=== PATIENT | female | born 1985 | race American Indian/Alaskan Native ===

== ENCOUNTER 2017-04-14 05:56 | Inpatient (IN) | payer OTHER ==
[2017-04-14 06:45] VITALS: BMI 27.6
[2017-04-14] MEDS ORDERED: Sodium Citrate/Citric Acid 15 ml Sol PO ONE (06:45)
--- NOTE | 2017-04-14 06:45 | OBHP ---
Datetime: 04/14/2017 06:40 IP Adm Impression: Term, intrauterine IP Adm Impression Other: early labor IP Admit Plan: Admit to unit Admit Comment, IP Provider: chief complaint-back anthony HPI 32 y/o at 38.3wga with c/o back pain course complicated by transfer of care; abnormal 1 hour gtt.could no do 3 hour gtt.was to ld she is gdm.has not been doing blood sugars at home PMH denies PSH csection OBGYN HX ; Csectionx1 Exam see exam section A/P 32 y/o at 38.wga with c/o back pain,previous csection in early labor -admit -see orders -dr rodriguez aware Pelvic Type - PN: Adequate Extremities - PN: Normal Abdomen - PN: Normal Back - PN: Normal Lungs - PN: Normal Heart - PN: Normal Neurologic - PN: Normal General - PN: Normal Weight - Estimated: 3200 Presentation-Admit: Vertex Contraction Comments Provider: irregular Gestation - Est Wks by US: 38.3 IP Hx Assessment: The History has been Reviewed and is Current EGA AdmitDate IP: 38.3 Vital Signs Provider: Reviewed; Within Normal Limits IP Chief Complaint: Uterine contractions FHR Category Provider Fetus A: Category I Dilatation, Provider: 1 Genitourinary Exam: Normal DTRs - PN: Normal
[2017-04-14 07:16] LABS: BASO % 0.4 % (0.0-2.0); EOS # 0.1 K/uL (0.0-0.7); EOS % 0.5 % (0.0-4.0); HEMOGLOBIN 10.2 g/dL (11.0-16.0); LYMPH # 1.8 K/uL (1.0-4.3); LYMPH % 13.5 % (20.0-40.0); MEAN CELL VOLUME 72.9 fL (81.0-99.0); MEAN CORPUSCULAR HEMOGLOBIN 24.6 pg (27.0-31.0); MEAN CORPUSCULAR HGB CONC 33.7 g/dL (33.0-37.0); MEAN PLATELET VOLUME 8.9 fL (7.2-11.7); MONO % 8.1 % (0.0-10.0); NEUT # 10.1 K/uL (1.8-7.0); NEUT % 77.5 % (50.0-75.0); RBC 4.15 Mil/uL (3.80-5.20); RED CELL DISTRIBUTION WIDTH 16.8 % (11.5-14.5)
[2017-04-14 07:20] LABS: SQUAMOUS EPITHIAL 1 /hpf (0-5); URINE BACTERIA RARE (<OCC); URINE BILIRUBIN NEGATIVE (NEGATIVE); URINE BLOOD NEGATIVE (NEGATIVE); URINE CLARITY Clear (Clear); URINE COLOR Straw (YELLOW); URINE GLUCOSE (UA) NORMAL (Normal); URINE LEUKOCYTE ESTERASE 1+ Leu/uL (Negative); URINE NITRATE NEGATIVE (NEGATIVE); URINE PROTEIN NEGATIVE (NEGATIVE); URINE UROBILINOGEN NORMAL mg/dL (0.2-1.0)
--- NOTE | 2017-04-14 07:20 | OBADHP ---
Datetime: 04/14/2017 06:40 Admit Comment, IP Provider: chief complaint-back anthony HPI 32 y/o at 38.3wga with c/o back pain course complicated by transfer of care; abnormal 1 hour gtt.could no do 3 hour gtt.was to ld she is gdm.has not been doing blood sugars at home PMH denies PSH csection OBGYN HX ; Csectionx1 Exam see exam section A/P 32 y/o at 38.wga with c/o back pain,previous csection in early labor -admit -see orders -dr rodriguez aware agrees with above FHR - Baseline A Provider: 130 Comments, ACOG Physical Exam: gravid,non tender ext no barbara,no calf ten NICHD Variability Prov Fetus A: Moderate 6-25bpm NICHD Accel Fetus A IP Provider: 15X15 Dilatation, Provider: 2 Effacement, Provider: 60 Station, Provider: -2 EGA AdmitDate IP: 38.3 IP Admit Plan: Admit to unit; Initiate Section protocol
[2017-04-14] MEDS ORDERED: Sodium Citrate/Citric Acid 15 ml Sol ONE ×2 (07:24→07:45)
[2017-04-14 07:33] LABS: BLOOD UREA NITROGEN 3 mg/dL (7-17); CALCIUM 9.1 mg/dl (8.6-10.4); GFR AFRICAN-AMERICAN > 60; GFR NON-AFRICAN AMERICAN > 60
[2017-04-14] MEDS ORDERED: Oxytocin 20 units in LR 2,000 ML IV ONE (07:57)
[2017-04-14] MEDS ORDERED: cefOXitin 2 GM in Sodium Chloride 0.9% 100 ML IV SCH (08:00)
[2017-04-14] MEDS ORDERED: Oxycodone/Acetaminophen 5/325 mg Tab PO PRN (08:04)
[2017-04-14] MEDS ORDERED: Morphine 1 mg/ml preservative-free Inj(Duramorph) ONE (08:09)
[2017-04-14] MEDS: Lactated Ringer's 1,000 ML IV SCH (08:39)
[2017-04-14] MEDS ORDERED: Midazolam 2 MG/2 ML VIAL ONE (08:56)
[2017-04-14] MEDS ORDERED: Ketamine 50 mg/ml Inj (10 ml) ONE (08:56)
[2017-04-14] MEDS ORDERED: DiphenhydrAMINE 50 mg/ml Inj IVP PRN (09:25)
[2017-04-14] MEDS ORDERED: Naloxone 0.4 mg/ml Inj (Adult) IVP PRN (09:25)
--- NOTE | 2017-04-14 09:29 | PCM.SURG1 ---
Surgeon's Initial Post Op Note - Surgeon's Notes Surgeon: dr rodriguez Medical Typist: dr nails Type of Anesthesia: Spinal Anesthesia Administered By: dr carnes Pre-Operative Diagnosis: 32 yr at 38+weeks previous c./s in pain Operative Findings: see the op reort Post-Operative Diagnosis: same Operation Performed: repe cearean section Specimen/Specimens Removed: cord blood. cord as Estimated Blood Loss: EBL {In ML}: 800 Blood Products Given: N/A Drains Used: No Drains Post-Op Condition: Good Date of Surgery/Procedure: 04/14/17 Time of Surgery/Procedure: 09:45
--- NOTE | 2017-04-14 09:32 | OBDS ---
DELIVERY PERSONNEL Delivery Doctor: Tomas Almendarez MD Scrub Nurse: Yenifer Aragon OBT Bilingual Patient Support Caseworker: Birgit Wills RN MATERNAL INFORMATION Delivery Anesthesia: Spinal Maternal Complications: None Provider Comments: baby deliveerd in roselia. end clear cord arround neck placente to ptholg no com LABOR SUMMARY EDC: 04/25/2017 00:00 No. Babies in Womb: 1 Attempted: No Labor Anesthesia: None LABOR INFORMATION Group B Beta Strep: Negative Steroids Given: None Reason Steroids Not Administered: Not Applicable MEMBRANES Membranes Rupture Method: Artificial Rupture of Membranes: 04/14/2017 08:42 Length of Rupture (hrs): 0.00 Amniotic Fluid Color: Clear Amniotic Fluid Amount: Moderate Amniotic Fluid Odor: Normal STAGES OF LABOR Stage 3 hrs: 0 Stage 3 min: 1 CSECTION DELIVERY Primary Indication: Repeat Elective Secondary Indication: Repeat Elective CSection Urgency: Elective CSection Incidence: Repeat Labor: N/A Elective: Elective BABY A INFORMATION Delivery Date/Time: 04/14/2017 08:42 Method of Delivery: Born in Route : No : N/A Forceps: N/A Vacuum Extraction: N/A Shoulder Dystocia : No SHOULDER DYSTOCIA BABY A Infant Delivery Date/Time: 04/14/2017 08:42 PRESENTATION/POSITION BABY A Presentation: Cephalic Cephalic Presentation: Vertex Breech Presentation: N/A PLACENTA INFORMATION BABY A Placenta Delivery Time : 04/14/2017 08:43 Placenta Method of Delivery: Manual Removal Placenta Status: Delivered SCORES BABY A Heart Rate 1 min: >100 bpm Resp Effort 1 min: Good Cry Reflex Irritability 1 min: Cough or Sneeze or Pulls Away Muscle Tone 1 min: Active Motion Color 1 min: Body [place], Extremities Blue SCORE 1 MIN: 9 Heart Rate 5 min: >100 bpm Resp Effort 5 min: Good Cry Reflex Irritability 5 min: Cough or Sneeze or Pulls Away Muscle Tone 5 min: Active Motion Color 5 min: Body [place], Extremities Blue SCORE 5 MIN: 9 INFORMATION BABY A Gestational Age at Delivery: 38.0 Gestational Status: Term Outcome : Liveborn Infant Condition : Stable Sex: Female IDENTIFICATION/MEDS BABY A ID Band Number: [id number] ID Band Location: Left Leg; Left Arm Sensor Applied: Yes Sensor Number: [id number] Sensor Location : Cord Clamp Vitamin K Given : Not Given Erythromycin Given: Not Given WEIGHT/LENGTH BABY A Infant Birthweight (gms): 2925 Weight (lb): 6 Infant Weight (oz): 7 Infant Length Inches: 18.00 Length cms: 45.7 CORD INFORMATION BABY A No. Cord Vessels: 3 Nuchal Cord : Around Neck x1, Loose True Knot: 0 Cord Blood Taken: Yes Infant Suction: None
[2017-04-14] MEDS: Simethicone 80 mg Chewtab PO SCH ×2 (14:10→21:54)
--- NOTE | 2017-04-15 06:24 | OBPPN ---
Datetime: 04/15/2017 06:21 PP Pain Prov: Within normal limits PP Nausea Prov: Denies PP Flatus Prov: No PP Abdomen/Uterus Prov: Normal PP Lochia Prov: Normal PP C/S Incision Prov: Normal PP Comments Phys Exam Prov: fudus below umblics ext no stone dressing clean and dry PP Impression Prov: Normal progression PP Plan Prov: Continue present management PP Progress Note Prov: pt was seen at bed side, pain under control with pain meds, no n/v, waitng to void,no flatus pod#1 s/p c/s cbc advance to re deit cont pain manag cont post op care encourage ambulation Vital Signs Provider PP: Reviewed; Within Normal Limits
[2017-04-15] MEDS: Lactated Ringer's 1,000 ML IV SCH (06:54)
--- NOTE | 2017-04-15 07:25 | OP ---
PROCEDURE DATE: PREOPERATIVE DIAGNOSES: A 32 years old 2, para 1 at 38 plus weeks, came in with pelvic pain, previous section. POSTOPERATIVE DIAGNOSES: A 32 years old 2, para 1 at 38 plus weeks, came in with pelvic pain, previous section. SURGEON: Tomas Almendarez MD. PARAKEET RAISER: Bri who was present throughout the surgery for exposure, retraction and pushing at the time of delivery. TYPE OF ANESTHESIA: Spinal. ANESTHESIA ADMINISTERED BY: Krish Cantu MD. PROCEDURE PERFORMED: Repeat section. DESCRIPTION OF PROCEDURE: After informed consent was obtained, patient was brought to the operating room, placed on the table where spinal anesthesia was given. Once the anesthesia was given, she was prepped and draped in the normal sterile fashion. A Jessica catheter was inserted under sterile condition. At the site of the previous skin incision, an incision was made with a knife, subcutaneous cut with a Bovie. The fascia was excised on both sides using curved Martinez scissors. The fascia was from the site of the umbilicus and of the rectus muscle. The rectus muscle was held up 2 Allis and cut with a knife. Then the peritoneum was held up. We went to the abdominal cavity. Bladder blade was placed, bladder flap was created. The lower uterine segment was very thinned out. An incision was made and baby delivered in CHARMAINE position. Cord was clamped and cut. There was cord around the baby's neck. It was reduced and cord gas was taken, was sent to pathology. After that, the placenta delivered manually, sent to the pathology. Uterus was exteriorized and cleared of all clots and debris. Uterine incision was closed using #1 Vicryl in running interlocking fashion. Second layer was closed with same stitch. cleared of all clots and debris. Uterus was returned back to abdominal cavity. Gutters were cleared of all clots and debris. Then, the peritoneum was closed using 2-0 Vicryl in running interlocking fashion. Muscle was closed using 2-0 Vicryl in running interlocking fashion. Fascia was closed using #1 Vicryl in running interlocking fashion. Subcutaneous interrupted fashion. Skin was closed using 3-0 Monocryl straight needle. Patient tolerated the procedure well. Lap, sponge, and instrument counts were correct x2. Tomas Almendarez MD
[2017-04-15] MEDS ORDERED: Bisacodyl 5mg EC Tab PO ONE (08:05)
[2017-04-15] MEDS: Simethicone 80 mg Chewtab PO SCH ×4 (09:12→21:39)
[2017-04-15 11:57] LABS: HEMOGLOBIN 9.3 g/dL (11.0-16.0); MEAN CELL VOLUME 72.9 fL (81.0-99.0); MEAN CORPUSCULAR HEMOGLOBIN 24.4 pg (27.0-31.0); MEAN CORPUSCULAR HGB CONC 33.5 g/dL (33.0-37.0); MEAN PLATELET VOLUME 8.8 fL (7.2-11.7); RBC 3.79 Mil/uL (3.80-5.20); WHITE BLOOD COUNT 18.1 K/uL (4.8-10.8)
[2017-04-15] MEDS: Oxycodone/Acetaminophen 5/325 mg Tab PO PRN ×2 (13:55→23:16)
[2017-04-16] MEDS: Simethicone 80 mg Chewtab PO SCH ×4 (09:49→21:54)
[2017-04-16 11:18] VITALS: RESP 18
[2017-04-16] MEDS: Oxycodone/Acetaminophen 5/325 mg Tab PO PRN (14:51)
[2017-04-17 08:30] VITALS: BP 110/73; PULSE 75; TEMP 97.5; O2SAT 98
[2017-04-17] MEDS: Simethicone 80 mg Chewtab PO SCH (10:15)
--- NOTE | 2017-04-18 18:48 | OBPPN ---
Datetime: 04/16/2017 11:36 PP Pain Prov: Within normal limits PP Nausea Prov: Denies PP Flatus Prov: Yes PP BM Prov: Yes PP Breasts Prov: Normal PP Heart Prov: Normal PP Lungs Prov: Normal PP Abdomen/Uterus Prov: Normal PP Lochia Prov: Normal PP Vulva/Perineum Prov: Not Done PP CVA Tenderness Prov: Normal PP Extremities Prov: Normal PP C/S Incision Prov: Normal PP Progress Prov: Normal PP Comments Phys Exam Prov: Abdomen: Softly distended versus slightly obese. (+) ABS. Fundus firm, tender, mobile. Mild lochia rubra. Incision c/d/i All other systems reviewed and are negative PP Impression Prov: Normal progression PP Plan Prov: Continue present management PP Progress Note Prov: Late entry: patient seen 04/16/17 at approximately 1136 hours Received in bed, room 462. Denies headaches, dizziness; nausea, vomiting. (+) flatus; (+) small B M. Ambulating and voiding without difficulty P.E.: as above. Mildly obese, in NAD. Awake, alert, oriented to time, person and place. - POD#1 H/H 9.3/27.6 Assessment: POD#2, 32 y.ol. P2012, S/P repeat C/S at 38wk - early labor. Afebrile, vital signs. R eturning gI and functions. Chronic anemia - asymptomatic and hemodynamically stable. Clinically s table. Plan: 1) Continue present management 2) Anticipate discharge home 04/17/17 Vital Signs Provider PP: Reviewed; Within Normal Limits
== END 2017-04-17 11:28 | disposition home or self-care (01) | DRG 370 ==
LOC: C.EROB 05:56 → C.4D 06:47 → C.4M 12:55
PROVIDERS: ADMIT Obstetrics & Gynecology; ATTEND Obstetrics & Gynecology
PROC: 10D00Z1 Extraction of Products of Conception, Low, Open Approach (ICD-10-PCS; principal; 2017-04-14)
DX: O34.219 Maternal care for unspecified type scar from previous cesarean delivery (principal); O99.02 Anemia complicating childbirth; O69.81X0 Labor and delivery complicated by cord around neck, without compression, not applicable or unspecified; Z3A.38 38 weeks gestation of pregnancy; Z37.0 Single live birth